=== PATIENT | male | born 1990 | race Caucasian/White ===

== ENCOUNTER → 2016-09-05 | Outpatient (CLI) | payer OTHER ==
--- NOTE | 2016-09-06 13:26 | CT ---
EXAM DATE: 09/05/16 PATIENT'S AGE: 26 Patient: DAMARIS FLAHERTY Facility: [place], [place] Site . Site : 1990 Study: CT Facial [id number]/10/2017 11:49:35 AM Ordering Physician: Jese Chaves Final Report: INDICATION: deviated nasal septum, nasal polyps CT SINUSES WITHOUT CONTRAST TECHNIQUE: Multidetector axial CT imaging was performed through the paranasal sinuses without contrast. Coronal and sagittal reconstructions were also generated. FINDINGS: There is near complete opacification of the paranasal sinuses diffusely, likely representing a combination of mucosal thickening and mucous retention cysts or polyps. Ostiomeatal complexes are occluded by mucosal thickening bilaterally. Moderate rightward deviation and bowing of the upper nasal septum is noted. There are small rounded soft tissue densities within the nasal cavity bilaterally, right greater than left, consistent with nasal polyps. There is opacification of left-sided precious bullosa. There is mild leftward angulation of the nose, likely reflecting old trauma. No acute fractures are evident. The orbits and their contents are unremarkable. Temporomandibular joints and included mandible are within normal limits. Mastoid air cells are normally aerated. IMPRESSION: Near-complete opacification of the paranasal sinuses and multiple bilateral nasal polyps as detailed above. These findings are consistent with sinonasal polyposis. LENA AL MD [employer] Dictated by Isaac Al MD @ 09/05/2016 9:01:59 PM Dictated by: Isaac Al MD @ 09/05/2016 21:02:44 (Electronic Signature) Report Signed by Proxy and Original Signed Document filed in the Medical Record. [facility]
== END ==
LOC: MW.DI 09:11
PROVIDERS: ATTEND Otolaryngology
DX: J34.2 Deviated nasal septum (principal); J33.9 Nasal polyp, unspecified; J34.89 Other specified disorders of nose and nasal sinuses
CPT/HCPCS: 70486; 70486-26

== ENCOUNTER 2016-09-21 06:16 | Day surgery (SDC) | payer OTHER ==
--- NOTE | 2016-09-21 06:44 | PCM.PREANE ---
Preanesthetic Assessment - Anesthesia/Transfusion/Family Hx Anesthesia History: Prior Anesthesia Without Reaction Family History of Anesthesia Reaction: No Transfusion History: No Prior Transfusion(s) Intubation History: Unknown - Review of Systems General: No Symptoms Pulmonary: No Symptoms Cardiovascular: No Symptoms Gastrointestinal: No symptoms Neurological: No Symptoms Other: Reports: None - Physical Assessment Height: 1.85 m Weight: 77.564 kg ASA Class: 2 Mental Status: Alert & Oriented x3 Airway Class: Mallampati = 2 Dentition: Reports: Normal Dentition Thyro-Mental Finger Breadths: 3 Mouth Opening Finger Breadths: 3 ROM/Head Extension: Full Lungs: Clear to auscultation, Normal respiratory effort Cardiovascular: Regular Rate, Regular Rhythm - Allergies Allergies/Adverse Reactions: Allergies Allergy/AdvReac Type Severity Reaction Status Date / Time No Known Allergies Allergy Verified 09/16/16 09:49 - Blood Blood Available: No - Anesthesia Plan Pre-Op Medication Ordered: None - Acknowledgements Anesthesia Type Planned: General Anesthesia Pt an Appropriate Candidate for the Planned Anesthesia: Yes Alternatives and Risks of Anesthesia Discussed w Pt/Guardian: Yes Pt/Guardian Understands and Agrees with Anesthesia Plan: Yes PreAnesthesia Questionnaire HEENT History: Reports: Other (see below) Other HEENT History: diviated septum, nasal polyp Musculoskeletal History: Reports: Back pain, chronic Other Musculoskeletal History: scheurmanns disease - Past Surgical History Head Surgeries/Procedures: Reports: None GI Surgical History: Reports: Hernia, inguinal (left at age of 8) Other GI Surgeries/Procedures: hx inguinal hernia repair - SUBSTANCE USE Smoking Status *Q: Current Some Day Smoker Tobacco Use Within Last Twelve Months: Cigarettes, Snuff/Dip (1 1/2 can every couple of days) Recreational Drug Use History: No - HOME MEDS Home Medications: Home Meds Amoxicillin/Potassium Clav [Augmentin 875-125 Tablet] 1 tab PO BID 09/16/16 [ History] predniSONE [Prednisone] 1 tab PO BID 09/16/16 [History] - CURRENT (IN HOUSE) MEDS Current Meds: Current Medications Lactated Ringer's (Ringers, Lactated) 1,000 mls @ 125 mls/hr IV ASDIRECTED [facility]
[2016-09-21] MEDS ORDERED: Lactated Ringers 1,000 ML IV SCH ×2 (06:45→07:15)
[2016-09-21] MEDS ORDERED: Remifentanil 1 MG Vial ONE (07:26)
[2016-09-21] MEDS ORDERED: Lidocaine 2% 5 ML SDV ONE ×2 (07:31→11:50)
[2016-09-21] MEDS ORDERED: EPINEPHrine 1:1000 1 MG/ML SDV ONE (07:31)
[2016-09-21] MEDS ORDERED: Aloe Vera/Sodium Chloride Gel 14.1 GM Tube ONE (07:31)
[2016-09-21] MEDS ORDERED: Oxymetazoline 0.05% Nasal Spray 15 ML Bottle ONE (07:32)
[2016-09-21] MEDS ORDERED: Lidocaine 2% with EPINEPHrine 1:100,000 20 ML MDV ONE (07:32)
[2016-09-21] MEDS ORDERED: Thrombin (Bovine) 5,000 Unit Kit ONE (07:32)
[2016-09-21] MEDS ORDERED: Propofol 200 MG/20 ML SDV ONE ×7 (07:36→12:08)
[2016-09-21] MEDS ORDERED: Lidocaine 1% 20 ML MDV ONE (07:38)
[2016-09-21] MEDS ORDERED: fentaNYL 250 MCG/5 ML SDV ONE (07:45)
[2016-09-21] MEDS ORDERED: Midazolam 1 MG/ML 2 ML SDV ONE (07:46)
--- NOTE | 2016-09-21 07:58 | PCM.HPR ---
H & P Addendum review - H & P Addendum Review Date of Original H & P: 09/05/16 Date Reviewed: 09/21/16 Time Reviewed: 07:50 Patient was examined: No Changes
[2016-09-21] MEDS ORDERED: ceFAZolin 1 GM Vial ONE (08:48)
[2016-09-21] MEDS ORDERED: Mineral Oil/Petrolatum Ophth Oint 3.5 GM Tube ONE (08:48)
[2016-09-21] MEDS ORDERED: HYDROmorphone 2 MG/ML Syringe ONE (09:34)
[2016-09-21] MEDS ORDERED: Ondansetron 4 MG/2 ML SDV ONE (11:50)
[2016-09-21] MEDS ORDERED: Dexamethasone 4 MG/ML 5 ML MDV ONE (12:02)
[2016-09-21] MEDS ORDERED: Acetaminophen/HYDROcodone 325-5 MG Tab PO PRN (13:39)
--- NOTE | 2016-09-21 13:49 | PCM.OPNOTE ---
- General Post-Op/Procedure Note Date of Surgery/Procedure: 09/21/16 Condition: Good Free Text/Narrative:: Pre operative diagnosis: Bilateral nasal polyps ( grade 3), Bilateral maxillary , ethmoid, sphenoid and frontal sinusitis with polyposis; Deviated nasal septum Post operative diagnosis: Same Procedure: Nasal Septoplasty [CPT 89294], Endoscopic nasal polypectomy, Bilateral middle meatal antrostoy with removal of polypoid tissue [ CPT 43971 ( 50)], Bilateral anterior and posterior ethmoidectomies [ CPT 61451 (50)], Bilateral sphenoidotomies [ [id number] (50). Sinus Navigation [13267] Surgeon: Andie Sawant MD Anesthesia: GA Anesthesiologist: Dr Salazar Date of procedure: 09/21/16 Indications: Findings: Bilateral Gr 3 nasal polyps - middle meatus and spheno ethmoid; bila maxillary, ethmoidal and sphenoidal polyps ++; Right - medialized uncinate; L small bulla and precious bullosa +; L caudal dislocation of septum; L posterior chondro vomerine spur +; R DNS ++high Operation Details: An informed consent was obtained. A time out was performed and the patient was brought back to the operating room. Gen. anesthesia was administered with an endotracheal tube. Oxymetazoline 0.05% was instilled in bilateral nasal cavities. The patient was then prepped and draped in a standard fashion. Bilateral eyes were left exposed and lubricating ointment was inserted into the eyes. Nasal septum was infiltrated with 2% lidocaine 1: 100, 000 epinephrine in a standard fashion-a total of 4 mils was used. A left sided elisabeth-transfixation incision was performed. A left sided mucoperichondrial flap was elevated- dissection was commenced with 2 mm osteotome and further carried out with combination of letha and [place] elevators. Posteriorly the flap was continued as a muco periosteal flap and Sharp and careful dissection was performed to lift the flaps off the left sided spur . Similar flaps were lifted on the Right side. Inferiorly flaps were lifted off the floor / maxillary crest. A posterior chondrotomy was performed. Floor of the septal cartilage was dissected off the maxillary crest. A thin vertical strip of cartilage was removed adjacent to the ethmoid. A garza scissor was used and the perpendicular plate of the ethmoid was removed. The vomer along with left-sided spur was also removed. The thin inferior strip of cartilage was removed using a septal knife. Subsequent to this the nasal septum was positioned towards the midline. There was a very small tear on the right side posteriorly and a small tear along the floor on the left side (no overlapping). The caudal septal cartilage was sutured to the nasal spine with a 5.0 PDS. The caudal end of cartilage was re positioned in a columellar pocket and flap incision was sutured with 4-0 plain gut. The [employer] navigation system was set up and the Tracker was fixed to the fore head as per protocol and tracking was performed and successful registration was obtained. The left middle turbinate axilla, the head of middle turbinate and the polyps were infiltrated with 2% lidocaine and 1 in 100,000 epinephrine-a total of 1.5 ml was used. Similar injections were performed on the right side. A cottonoid pledget soaked in 1: 10,000 epinephrine each was placed in the middle meatus, draping over the middle turbinate axilla and one in the region of the sphenoethmoid recess - this was done bilaterally. The left side was addressed first. After appropriate period of decongestion the cottonoid pledgets were removed. Nasal polyp was grasped with a Blakesly daina and gently removed and sent for histopathology. The middle turbinate was gently medialized with freer elevator and the 0 rigid nasal endoscope was introduced into the middle meatus. The posterior free edge of the uncinate process was identified and medialized with a ball probe. A right sided pediatric backbiter was used to remove the uncinate process at the junction of the horizontal and vertical part. A 4 mm straight shot tri-cut blade with navigation attached to it was then used to debride the vertical attachment of the uncinate process up to the attachment of Agger nasi cell. The middle meatus polyps were also removed. A ball probe was then used to identify the left maxillary sinus ostium - very narrow. The horizontal part of the uncinate process was then further dissected away with a ball probe and then with a combination of microdebrider and cold steel dissection. The 30 rigid endoscope was used to examine the maxillary ostium - findings as above. The sinus polyp was removed with a Huge wieser forceps. The maxillary sinus was thoroughly irrigated with saline. A 0 degree nasal endoscope was used and the left bulla ethmoidalis was identified and removed with the microdebrider along with the polypoid tissue; remaining anterior ethmoid cells were also removed. The posterior ethmoids were entered by penetrating the ground lamella at the junction of horizontal and vertical part with a microdebrider; further dissection was carried out with a microdebrider and the posterior ethmoid cells were cleared sequentially along with the polypoid tissue. Sphenoidotomy was performed inferior medially - polyp removed and sphenoid sinus was clear; the opening was enlarged inf medially. The frontal recess was examined - clear. The left middle meatus was then finally irrigated with the warm saline and inspected with rigid endoscope. No loose bone chips were identified. Attention was then directed towards the right side. The cottonoid pledgets were removed. Nasal polyp was grasped with a Blakesly wild and gently removed and sent for histopathology. The middle turbinate was gently medialized with freer elevator and the 0 rigid nasal endoscope was introduced into the middle meatus. A medialized uncinte rocess was identified. A microdebrider was used to remove the uncinate process - vertical aspect up to the attachment of Agger nasi cell. The middle meatus polyps were also removed. A ball probe was then used to identified the right maxillary sinus ostium . The horizontal part of the uncinate process was then further dissected away with a ball probe and then with a combination of microdebrider and cold steel dissection. The 30 rigid endoscope was used to examine the maxillary ostium - findings as above. The sinus polyp was removed with a microdebrider and blakesly daina. The maxillary sinus was thoroughly irrigated with saline. A 0 degree nasal endoscope was used and the bulla ethmoidalis was identified and removed with the microdebrider along with the polypoid tissue; remaining anterior ethmoid cells were also sequentially cleared. The posterior ethmoids were entered by penetrating the ground lamella at the junction of horizontal and vertical part with a microdebrider; further dissection was carried out with a microdebrider and the posterior ethmoid cells were cleared sequentially along with the polypoid tissue. Sphenoidotomy was performed inferior medially - polyp removed and sphenoid sinus was clear; the opening was enlarged inf medially. The frontal recess was examined - minimal poypoid mucos + was removed. The middle meatus was then finally irrigated with the warm saline and inspected with rigid endoscope. No loose bone chips were identified. At all times the position of instruments was confirmed with [employer] navigation and a combination of straight, 90 and 70 degrees suctions and ostium seekers - all navigated were used as required at appropriate times to assist with identifying landmarks and dissection. Nasopore packs were inserted in MM bilaterally and moistened with dexamethasone Post nasal space was suctioned clear of blood bilaterally and per orally. Drip pad was applied. This concluded the procedure and the patient was turned over to the anesthesiologist for recovery. Specimens: Bilateral nasal polyps; bon from medial wall of R maxillary sinus IV fluids: 2200 ml Blood loss: 20 ml Blood products: nil Disposition: PACU for recovery Follow up: In 1 week
[2016-09-21] MEDS ORDERED: Meperidine PF 50 MG/ML Syringe ONE (14:23)
[2016-09-21] MEDS ORDERED: Meperidine PF 25 MG/ML Syringe IVPUSH ONE (14:25)
--- NOTE | 2016-09-21 14:28 | PCM.POSTAN ---
POST ANESTHESIA ASSESSMENT - MENTAL STATUS Mental Status: alert (w/ stimulation), oriented - RESPIRATORY Respiratory Status: respiratory rate WNL, airway patent, O2 saturation stable - CARDIOVASCULAR CV Status: pulse rate WNL, blood pressure stable - GASTROINTESTINAL GI Status: no symptoms - PAIN Pain Score: 0 (c/o thirsty) - POST OP HYDRATION Hydration Status: adequate & stable
--- NOTE | 2016-09-21 16:15 | PCM48HPAN ---
Post Anesthesia Note - EVALUATION WITHIN 48HRS OF ANESTHETIC Vital Signs in Normal Range: Yes Patient Participated in Evaluation: Yes Respiratory Function Stable: Yes Airway Patent: Yes Cardiovascular Function Stable: Yes Hydration Status Stable: Yes Pain Control Satisfactory: Yes Nausea and Vomiting Control Satisfactory: Yes Mental Status Recovered: Yes - COMMENTS/OBSERVATIONS Free Text/Narrative:: Pt still somewhat groggy, but states he's ready to go home. Dr. Sawant was just by to see pt and order IV tylenol prior to discharge. VSS. Pt denies any nausea at this time. No apparent anesthesia complications.
[2016-09-21] MEDS ORDERED: Acetaminophen 1,000 MG in Premix Bag 1 BAG IV ONE (16:25)
[2016-09-21] MEDS ORDERED: Ketorolac 15 MG/ML SDV IVPUSH ONE (18:00)
[2016-09-21 18:14] VITALS: BP 115/68
== END 2016-09-21 17:35 | disposition home or self-care (01) ==
LOC: MW.SDS 06:16 → MW.MS 17:09 → MW.SDS 17:35
PROVIDERS: ATTEND Otolaryngology
DX: J33.8 Other polyp of sinus (principal); J34.2 Deviated nasal septum; J32.8 Other chronic sinusitis; F17.200 Nicotine dependence, unspecified, uncomplicated
CPT/HCPCS: 30520; 31255; 31267; 31287; 61782; A9270; J0171; J0690; J1100; J1170; J1885; J2175; J2250; J2405; J3010; J7120; 00160; 88304; J2704

== ENCOUNTER 2016-12-29 12:19 | Emergency (ER) | payer OTHER ==
--- NOTE | 2016-12-29 12:40 | EDM.PDOC ---
ED HPI GENERAL MEDICAL PROBLEM - General Chief Complaint: Respiratory Problem Stated Complaint: COUGH Time Seen by Provider: 12/29/16 12:38 Source of Information: Reports: Patient History Limitations: Reports: No Limitations - History of Present Illness INITIAL COMMENTS - FREE TEXT/NARRATIVE: History of present illness: Patient indicates he has a sore throat unable to speak well and that the ear feels like there is swelling in his throat making it hard for him to breathe visit he is breathing through a straw. Patient also indicates he's had some earache and a productive cough of a green-yellow sputum for the last 2 days. Review of systems: As per history of present illness and below otherwise all systems reviewed and negative. Past medical history: As per history of present illness and as reviewed below otherwise noncontributory. Surgical history: As per history of present illness and as reviewed below otherwise noncontributory. Social history: No reported history of drug or alcohol abuse. Family history: As per history of present illness and as reviewed below otherwise noncontributory. Physical exam: HEENT: Atraumatic, normocephalic, tenderness over frontal and maxillary facial sinuses, pupils reactive, negative for conjunctival pallor or scleral icterus, mucous membranes moist with oral pharyngeal erythema with white patchy exudate, bilateral TMs pink with good light reflex but small amount of bulging noted, neck supple, nontender, trachea midline. Lungs: Clear to auscultation, breath sounds equal bilaterally, chest nontender. Heart: S1S2, regular, negative for clicks, rubs, or JVD. Abdomen: Soft, nondistended, nontender. Negative for masses or hepatosplenomegaly. Negative for costovertebral tenderness. Pelvis: Stable nontender. Genitourinary: Deferred. Rectal: Deferred. Extremities: Atraumatic, negative for cords or calf pain. Neurovascular unremarkable. Neuro: Awake, alert, oriented. Cranial nerves II through XII unremarkable. Cerebellum unremarkable. Motor and sensory unremarkable throughout. Exam nonfocal. Diagnostics: [] Therapeutics: [] Impression: [Pharyngitis, sinusitis] Plan: [Antibiotics, inhaler, bursa steroids] Definitive disposition and diagnosis as appropriate pending reevaluation and review of above. - Related Data Allergies Allergy/AdvReac Type Severity Reaction Status Date / Time No Known Allergies Allergy Verified 09/16/16 09:49 Home Meds: Home Meds Albuterol Sulfate [Proair Hfa] 2 puff IH Q6HR #1 [email or web address] 12/29/16 [Rx] Inhaler, Assist Devices [Space Chamber Plus] 1 each ASDIRECTED #1 spacer 08/12 [Rx] Past Medical History HEENT History: Reports: Other (See Below) Other HEENT History: diviated septum, nasal polyp Musculoskeletal History: Reports: Back Pain, Chronic Other Musculoskeletal History: scheurmanns disease - Past Surgical History GI Surgical History: Reports: Hernia, Inguinal Social & Family History - Tobacco Use Smoking Status *Q: Current Some Day Smoker - Caffeine Use Caffeine Use: Reports: Coffee - Recreational Drug Use Recreational Drug Use: No ED ROS GENERAL - Review of Systems Review Of Systems: See Below (See history of present illness) ED EXAM, GENERAL - Physical Exam Exam: See Below (See history of present illness) Departure - Departure Time of Disposition: 12:40 Disposition: Home, Self-Care 01 Condition: Good Clinical Impression: Sinusitis, Pharyngitis - Discharge Information Prescriptions: Albuterol Sulfate [Proair Hfa] 2 puff IH Q6HR #1 hfa.aer.ad Amoxicillin/Potassium Clav [Augmentin 875-125 Tablet] 1 each PO BID #20 tablet Inhaler, Assist Devices [Space Chamber Plus] 1 each ASDIRECTED #1 spacer methylPREDNISolone [Medrol] 4 mg PO DAILY #21 tab.ds.pk Forms: ED Department Discharge Additional Instructions: The following information is given to patients seen in the emergency department who are being discharged to home. This information is to outline your options for follow-up care. We provide all patients seen in our emergency department with a follow-up referral. The need for follow-up, as well as the timing and circumstances, are variable depending upon the specifics of your emergency department visit. If you don't have a primary care physician on staff, we will provide you with a referral. We always advise you to contact your personal physician following an emergency department visit to inform them of the circumstance of the visit and for follow-up with them and/or the need for any referrals to a consulting specialist. The emergency department will also refer you to a specialist when appropriate. This referral assures that you have the opportunity for follow-up care with a specialist. All of these measure are taken in an effort to provide you with optimal care, which includes your follow-up. Under all circumstances we always encourage you to contact your private physician who remains a resource for coordinating your care. When calling for follow-up care, please make the office aware that this follow-up is from your recent emergency room visit. If for any reason you are refused follow-up, please contact the [facility] Emergency Department at and asked to speak to the emergency department charge nurse. Take medication as directed Follow up with PCP 1-2 days Return to ED as needed as discussed
[2016-12-29 13:13] VITALS: BP 135/61
== END 2016-12-29 12:52 | disposition home or self-care (01) ==
LOC: MW.ED 12:19
DX: J32.9 Chronic sinusitis, unspecified (principal); J02.9 Acute pharyngitis, unspecified; F17.210 Nicotine dependence, cigarettes, uncomplicated; Z98.890 Other specified postprocedural states
CPT/HCPCS: 99283

== ENCOUNTER 2017-08-04 10:51 | Emergency (ER) | payer OTHER ==
[2017-08-04] MEDS ORDERED: Ketorolac 60 MG/2 ML SDV IM ONE (11:02)
--- NOTE | 2017-08-04 11:14 | EDM.PDOC ---
ED HPI GENERAL MEDICAL PROBLEM - General Chief Complaint: Chest Pain Stated Complaint: CHEST PAIN Time Seen by Provider: 08/04/17 10:53 Source of Information: Reports: Patient History Limitations: Reports: No Limitations - History of Present Illness INITIAL COMMENTS - FREE TEXT/NARRATIVE: History of present illness: []1 hour ago patient developed substernal chest pain that feels like a "pulling ". He states it's worse when he takes a deep breath and he exhibits a sledgehammer work and that makes it worse. He does not have the pain when he sitting or lying quietly. Patient denies any fevers, cough, recent flulike symptoms or cold shortness of breath, sweatiness, dizziness or lightheadedness. Review of systems: As per history of present illness and below otherwise all systems reviewed and negative. Past medical history: As per history of present illness and as reviewed below otherwise noncontributory. Surgical history: As per history of present illness and as reviewed below otherwise noncontributory. Social history: No reported history of drug or alcohol abuse. Family history: As per history of present illness and as reviewed below otherwise noncontributory. Physical exam: General: Well developed, well nourished in NAD HEENT: Atraumatic, normocephalic, pupils reactive, negative for conjunctival pallor or scleral icterus, mucous membranes moist, throat clear, neck supple, nontender, trachea midline. Lungs: Clear to auscultation, breath sounds equal bilaterally, chest tenderness with reproducible pain on palpation and movement of his arms. Heart: S1S2, regular, negative for clicks, rubs, or JVD. Abdomen: Soft, nondistended, nontender. Negative for masses or hepatosplenomegaly. Negative for costovertebral tenderness. Pelvis: Stable nontender. Genitourinary: Deferred. Rectal: Deferred. Extremities: Atraumatic, negative for cords or calf pain. Neurovascular unremarkable. Neuro: Awake, alert, oriented. Cranial nerves II through XII unremarkable. Cerebellum unremarkable. Motor and sensory unremarkable throughout. Exam nonfocal. Diagnostics: []Chest x-ray possible trace left hilar infiltrate Therapeutics: []Toradol Impression: []Chest wall pain Plan: []Ibuprofen and Tylenol for pain follow-up with primary care Definitive disposition and diagnosis as appropriate pending reevaluation and review of above. Middle Mid-Sternal Chest Pain Score (Numeric/FACES): 6 - Related Data Allergies Allergy/AdvReac Type Severity Reaction Status Date / Time No Known Allergies Allergy Verified 08/04/17 11:02 Home Meds: Home Meds Albuterol Sulfate [Proair Hfa] 2 puff IH Q6HR #1 hfa.aer.ad 12/29/16 [Rx] Inhaler, Assist Devices [Space Chamber Plus] 1 each ASDIRECTED #1 spacer 08/12 [Rx] Past Medical History HEENT History: Reports: Other (See Below) Other HEENT History: diviated septum, nasal polyp Musculoskeletal History: Reports: Back Pain, Chronic Other Musculoskeletal History: scheurmanns disease Dermatologic History: Reports: Other (See Below) Other Dermatologic History: tinea versacolor - Infectious Disease History Infectious Disease History: Reports: None - Past Surgical History Head Surgeries/Procedures: Reports: None GI Surgical History: Reports: Hernia, Inguinal Social & Family History - Family History Family Medical History: Noncontributory - Tobacco Use Smoking Status *Q: Light Tobacco Smoker Years of Tobacco use: 9 Packs/Tins Daily: 0 - Caffeine Use Caffeine Use: Reports: Coffee - Recreational Drug Use Recreational Drug Use: No ED ROS GENERAL - Review of Systems Review Of Systems: See Below (See history of present illness) ED EXAM, GENERAL - Physical Exam Exam: See Below (See history of present illness) Course - Vital Signs Last Recorded V/S: Last Vital Signs Temp 97.5 F 08/04/17 10:58 Pulse 67 08/04/17 10:58 Resp 18 08/04/17 10:58 BP 124/58 L 08/04/17 10:58 Pulse Ox 99 08/04/17 10:58 - Orders/Labs/Meds Orders: Active Orders 24 hr Category Date Time Status EKG Documentation Completion [RC] STAT Care 08/04/17 11:01 Active Meds: Medications Discontinued Medications Generic Name Dose Route Start Last Admin Trade Name Freq PRN Reason Stop Dose Admin Ketorolac Tromethamine 60 mg 08/04/17 11:02 08/04/17 12:04 Toradol IM 08/04/17 11:03 60 mg ONETIME ONE Administration Departure - Departure Time of Disposition: 12:15 Disposition: Home, Self-Care 01 Condition: Good Clinical Impression: Chest wall pain Forms: ED Department Discharge Additional Instructions: The following information is given to patients seen in the emergency department who are being discharged to home. This information is to outline your options for follow-up care. We provide all patients seen in our emergency department with a follow-up referral. The need for follow-up, as well as the timing and circumstances, are variable depending upon the specifics of your emergency department visit. If you don't have a primary care physician on staff, we will provide you with a referral. We always advise you to contact your personal physician following an emergency department visit to inform them of the circumstance of the visit and for follow-up with them and/or the need for any referrals to a consulting specialist. The emergency department will also refer you to a specialist when appropriate. This referral assures that you have the opportunity for follow-up care with a specialist. All of these measure are taken in an effort to provide you with optimal care, which includes your follow-up. Under all circumstances we always encourage you to contact your private physician who remains a resource for coordinating your care. When calling for follow-up care, please make the office aware that this follow-up is from your recent emergency room visit. If for any reason you are refused follow-up, please contact the [facility] Emergency Department at and asked to speak to the emergency department charge nurse. Tylenol or Motrin for pain follow-up with primary care return if symptoms worsen [facility] [address] [place] [id number] - My Orders Last 24 Hours: My Active Orders 08/04/17 11:01 EKG Documentation Completion [RC] STAT - Assessment/Plan Last 24 Hours: My Active Orders 08/04/17 11:01 EKG Documentation Completion [RC] STAT
--- NOTE | 2017-08-04 11:48 | CR ---
EXAMINATION: Two-view chest (PA and Lateral views). HISTORY: Shortness of breath. FINDINGS: The trachea is midline. The cardiomediastinal silhouette is within normal limits. Trace left perihila r infiltrate is not excluded. No pleural effusion or pneumothorax. Mild left apical scarring. Levocurvature of the upper thoracic spine is noted. IMPRESSION: Possible trace left perihilar infiltrate.
[2017-08-04 12:35] VITALS: BP 120/74
== END 2017-08-04 12:28 | disposition home or self-care (01) ==
LOC: MW.ED 10:51
DX: R07.89 Other chest pain (principal); F17.210 Nicotine dependence, cigarettes, uncomplicated
CPT/HCPCS: 71046; 96372; 99284; J1885; 99283

== ENCOUNTER 2018-01-26 07:45 | Day surgery (SDC) | payer OTHER ==
[~2018-01-26 07:45] MED LIST: Bupivacaine 0.5% 10 ML SDV ONE; Lactated Ringers 1,000 ML IV SCH; ceFAZolin 1 GM Vial ONE
[2018-01-26] MEDS ORDERED: Rocuronium 10 MG/ML 10 ML Syringe ONE (09:03)
[2018-01-26] MEDS ORDERED: Ondansetron 4 MG/2 ML SDV ONE (09:03)
[2018-01-26] MEDS ORDERED: fentaNYL 100 MCG/2 ML SDV ONE (09:03)
[2018-01-26] MEDS ORDERED: Midazolam 1 MG/ML 2 ML SDV ONE (09:03)
[2018-01-26] MEDS ORDERED: Propofol 200 MG/20 ML SDV ONE ×2 (09:03→09:29)
[2018-01-26] MEDS ORDERED: Dexamethasone 4 MG/ML 5 ML MDV ONE (09:04)
[2018-01-26] MEDS ORDERED: Ketorolac 30 MG/ML SDV ONE (09:04)
--- NOTE | 2018-01-26 09:09 | PCM.PREANE ---
Preanesthetic Assessment - Anesthesia/Transfusion/Family Hx Anesthesia History: Prior Anesthesia Reaction Other Type of Anesthesia Reaction Comment: hx of low SaO2 post op and violent behavior when awakening Family History of Anesthesia Reaction: No Transfusion History: No Prior Transfusion(s) Intubation History: Unknown - Review of Systems General: Other (groin discomfort) Pulmonary: No Symptoms Cardiovascular: No Symptoms Gastrointestinal: Abdominal Pain (due to hernioa) Neurological: No Symptoms Other: Reports: None - Physical Assessment NPO Status Date: 01/25/18 NPO Status Time: 20:00 O2 Sat by Pulse Oximetry: 98 Respiratory Rate: 16 Vital Signs: Last Vital Signs Temp 98.2 F 01/26/18 08:05 Pulse 68 01/26/18 08:05 Resp 16 01/26/18 08:05 BP 130/80 01/26/18 08:05 Pulse Ox 98 01/26/18 08:05 Height: 6 ft 1 in Weight: 193 lb ASA Class: 2 Mental Status: Alert & Oriented x3 Airway Class: Mallampati = 2 Dentition: Reports: Normal Dentition Thyro-Mental Finger Breadths: 3 Mouth Opening Finger Breadths: 3 ROM/Head Extension: Full Lungs: Clear to Auscultation, Normal Respiratory Effort Cardiovascular: Regular Rate, Regular Rhythm, No Murmurs - Allergies Allergies/Adverse Reactions: Allergies Allergy/AdvReac Type Severity Reaction Status Date / Time No Known Allergies Allergy Verified 01/19/18 16:44 - Blood Blood Available: No Product(s) Available: None - Anesthesia Plan Pre-Op Medication Ordered: None - Acknowledgements Anesthesia Type Planned: General Anesthesia (OET ) Pt an Appropriate Candidate for the Planned Anesthesia: Yes Alternatives and Risks of Anesthesia Discussed w Pt/Guardian: Yes Pt/Guardian Understands and Agrees with Anesthesia Plan: Yes Additional Comments: Awareness made to all involved in the care of this patient with his violent emergence. PreAnesthesia Questionnaire HEENT History: Reports: None Other HEENT History: diviated septum, nasal polyp Cardiovascular History: Reports: None Respiratory History: Reports: None Genitourinary History: Reports: None Musculoskeletal History: Reports: Back Pain, Chronic, Fracture Other Musculoskeletal History: hx of fx ankle Neurological History: Reports: None Psychiatric History: Reports: Anxiety, Depression, PTSD Endocrine/Metabolic History: Reports: None Hematologic History: Reports: None Immunologic History: Reports: None Oncologic (Cancer) History: Reports: None Dermatologic History: Reports: None Other Dermatologic History: tinea versacolor - Infectious Disease History Infectious Disease History: Reports: None - Past Surgical History Head Surgeries/Procedures: Reports: None HEENT Surgical History: Reports: Naso-Sinus Surgery GI Surgical History: Reports: Hernia, Inguinal Other GI Surgeries/Procedures: hx inguinal hernia repair - SUBSTANCE USE Smoking Status *Q: Unknown Ever Smoked Tobacco Use Within Last Twelve Months: Cigarettes Days Per Week of Alcohol Use: 7 Number of Drinks Per Day: 6 Total Drinks Per Week: 42 Recreational Drug Use History: No - HOME MEDS Home Medications: Home Meds . [No Known Home Meds] 01/19/18 [History] - CURRENT (IN HOUSE) MEDS Current Meds: Current Medications Lactated Ringer's (Ringers, Lactated) 1,000 mls @ 125 mls/hr IV ASDIRECTED [facility] Last Admin: 01/26/18 08:25 Dose: 125 mls/hr Discontinued Medications Bupivacaine HCl (Sensorcaine-Mpf 0.5%) Confirm Administered Dose 10 ml .ROUTE .STK-MED ONE Stop: 01/26/18 07:40 Cefazolin Sodium (Ancef) Confirm Administered Dose 1 gm .ROUTE .STK-MED ONE Stop: 01/26/18 07:40
[2018-01-26] MEDS ORDERED: HYDROmorphone 2 MG/ML SDV ONE (09:29)
[2018-01-26] MEDS ORDERED: ceFAZolin 1 GM Vial ONE (09:52)
[2018-01-26] MEDS ORDERED: Sugammadex Sodium 200 MG/2 ML VIAL ONE (10:42)
[2018-01-26] MEDS ORDERED: Acetaminophen/HYDROcodone 325-5 MG Tab PO PRN (11:05)
[2018-01-26] MEDS ORDERED: Ondansetron 4 MG/2 ML SDV IVPUSH PRN (11:05)
--- NOTE | 2018-01-26 11:07 | PCM.OPNOTE ---
- General Post-Op/Procedure Note Date of Surgery/Procedure: 01/26/18 Operative Procedure(s): Repair right inguinal hernia with medium Bard PerFix plug and patch Pre Op Diagnosis: Reducible right inguinal hernia Post-Op Diagnosis: Reducible direct right inguinal hernia Anesthesia Technique: General ET Tube (ASA II) Primary Surgeon: Roderick Lyman Fluid Replacement, Intraop: 1,100 EBL in mLs: 10 Condition: Good Free Text/Narrative:: DICTATION [id number] CPT CODE 19222
[2018-01-26] MEDS ORDERED: Lactated Ringers 1,000 ML IV SCH (11:15)
[2018-01-26] MEDS: Morphine 4 MG/ML Syringe IVPUSH PRN ×2 (11:25→12:29)
--- NOTE | 2018-01-26 12:09 | PCM.POSTAN ---
POST ANESTHESIA ASSESSMENT - MENTAL STATUS Mental Status: Alert, Oriented - RESPIRATORY Respiratory Status: Respiratory Rate WNL, Airway Patent, O2 Saturation Stable - CARDIOVASCULAR CV Status: Pulse Rate WNL, Blood Pressure Stable - GASTROINTESTINAL GI Status: No Symptoms - POST OP HYDRATION Hydration Status: Adequate & Stable
--- NOTE | 2018-01-26 14:24 | PCM48HPAN ---
Post Anesthesia Note - EVALUATION WITHIN 48HRS OF ANESTHETIC Vital Signs in Normal Range: Yes Patient Participated in Evaluation: Yes Respiratory Function Stable: Yes Airway Patent: Yes Cardiovascular Function Stable: Yes Hydration Status Stable: Yes Pain Control Satisfactory: Yes Nausea and Vomiting Control Satisfactory: Yes Mental Status Recovered: Yes Resp Rate: 16
[2018-01-26 15:10] VITALS: BP 123/75
--- NOTE | 2018-01-26 17:45 | OR ---
SURGEON: Roderick Lyman M.D. DATE OF PROCEDURE: 01/26/2018 OPERATION PERFORMED: Repair of right inguinal hernia with medium Bard PerFix plug and patch. ANESTHESIA: General endotracheal. ASA CLASSIFICATION: II PREOPERATIVE DIAGNOSIS: Reducible right inguinal hernia. POSTOPERATIVE DIAGNOSIS: Reducible right inguinal hernia. ESTIMATED BLOOD LOSS: 10 mL. INTRAOPERATIVE FLUID REPLACEMENT: 1100 mL of crystalloid. DESCRIPTION OF PROCEDURE: The patient was taken to the operating room, placed on the operating table in supine position. Time-out was called for appropriate identification of patient and procedure. Thigh-high TEDs and sequential compression boots were placed. The surgical site had been marked prior to the patient entering the operating room. Following satisfactory attainment of general endotracheal anesthesia, the abdomen was prepped with DuraPrep solution. Sterile drapes were applied. The skin incision was marked out in the right inguinal crease and infiltrated with 10 mL of 0.5% Marcaine solution. The skin incision was made and deepened through the subcutaneous tissue obtaining hemostasis with a combination of electrocautery and ligating larger vessels with 3-0 Vicryl ties. Dissection was carried down to the external oblique fascia, which was opened in the direction of its fibers. The spermatic cord was identified. The defect was medial. The cord was mobilized with care taken to preserve the ilioinguinal nerve. The cord was then encircled with a [place] drain. A medium Bard PerFix plug and patch was brought to the operating table and soaked in 1% Ancef solution. The plug was placed into the medial defect and secured with 0 Ethibond sutures. The patch was placed over this and the repair carried out medially to laterally and inferiorly beginning at Cortes ligament, transitioning to the inguinal ligament and superiorly to the transversalis fascia. The wings of the patch were brought around the cord and secured laterally with an 0 Ethibond suture. All sutures, but the lateral stitch was tied. The patient was given a Valsalva maneuver to 40 cm of water and the repair was solid. The lateral suture was secured. The wound was then irrigated with 1% Ancef solution and all fluid aspirated. The cord was returned to its anatomic location. The external oblique was closed with running 3-0 Vicryl. Aneesh fascia was closed with 3-0 Vicryl, and the skin edges were re-approximated with subcuticular 4-0 Monocryl. The incision was reinforced with Steri-Strips and a sterile Tegaderm pad was placed as a dressing. Sponge, needle, and instrument counts were all correct. The patient tolerated the procedure well. Following emergence from anesthesia and extubation, the patient was taken to recovery room in stable condition. RUPERT WOODS /[id number]
== END 2018-01-26 14:04 | disposition home or self-care (01) ==
LOC: MW.SDS 07:45
PROVIDERS: ATTEND Surgery
DX: K40.90 Unilateral inguinal hernia, without obstruction or gangrene, not specified as recurrent (principal); F41.9 Anxiety disorder, unspecified; F32.9 Major depressive disorder, single episode, unspecified; F43.10 Post-traumatic stress disorder, unspecified; F17.210 Nicotine dependence, cigarettes, uncomplicated
CPT/HCPCS: 49505; A9270; J0690; J1100; J1170; J1885; J2250; J2270; J2405; J2704; J3010; J3490; J7120

== ENCOUNTER 2021-05-31 16:41 | Emergency (ER) | payer BC, OTHER ==
[2021-05-31 17:37] LABS: CORONAVIRUS COVID-19 NAA NEGATIVE (NEGATIVE); INFLUENZA A NAA NEGATIVE (NEGATIVE); INFLUENZA B NAA NEGATIVE (NEGATIVE)
[2021-05-31 18:49] LABS: BLOOD UREA NITROGEN,BUN 17 mg/dL (7.0-18.0); CHLORIDE,CL 104 mmol/L (98-107); GLUCOSE RANDOM 101 mg/dL (74-106); POTASSIUM,K 4.9 mmol/L (3.5-5.1); SODIUM,NA 140 mmol/L (136-148)
--- NOTE | 2021-05-31 19:29 | CR ---
Indication: Pain. Shortness of breath. Technique: A portable AP upright view of the chest was obtained. Comparison: 08/04/2017 Findings: The cardiac silhouette and pulmonary vasculature are within normal limits. The lungs are clear bilaterally. There is scoliosis Impression: No evidence of acute pulmonary disease. Dictated by Conner Villafana MD @ 05/31/2021 7:27:27 PM (Electronically Signed)
--- NOTE | 2021-05-31 20:01 | EDM.PDOC ---
ED HPI GENERAL MEDICAL PROBLEM - General Chief Complaint: Chest Pain Stated Complaint: TROUBLE BREATHING, RT SIDE PAIN Time Seen by Provider: 05/31/21 17:45 Source of Information: Reports: Patient History Limitations: Reports: No Limitations - History of Present Illness INITIAL COMMENTS - FREE TEXT/NARRATIVE: HISTORY AND PHYSICAL: History of present illness: Patient is an otherwise healthy 31-year-old male who presents emergency room today with concern of episodes of chest pain that have been ongoing for the past 3 days. Patient states that these episodes are intermittent and are sharp and only last a few seconds. He also states he also has an associated pressure that has been constant for 3 days. Patient states that a few hours before coming to the emergency room, he was walking when the pain had occurred and he felt like he could not take a deep breath. He states this was sharp and only lasted a few seconds before resolved. Patient states he has not taken anything for his symptoms. Patient denies fever, chills, shortness of breath, or cough. Denies headache, neck stiff ness, change in vision, syncope, or near syncope. Denies nausea, vomiting, abdominal pain, diarrhea, constipation, or dysuria. Has not noted any blood in urine or stool. Patient has been eating and drinking appropriately. Review of systems: As per history of present illness and below otherwise all systems reviewed and negative. Past medical history: As per history of present illness and as reviewed below otherwise noncontributory. Surgical history: As per history of present illness and as reviewed below otherwise noncontributory. Social history: See social history for further information Family history: As per history of present illness and as reviewed below otherwise noncontributory. Physical exam: General: Patient is alert, oriented, and in no acute distress. Patient sitting comfortably on exam table. Vitals stable and reviewed by me. HEENT: Atraumatic, normocephalic, pupils equal and reactive bilaterally, negative for conjunctival pallor or scleral icterus, mucous membranes moist, throat clear, neck supple, nontender, trachea midline. No drooling or trismus noted. No meningeal signs. No hot potato voice noted. Lungs: Clear to auscultation, breath sounds equal bilaterally, chest nontender. Heart: S1S2, regular rate and rhythm without overt murmur Abdomen: Soft, nondistended, nontender. Negative for masses or hepatosplenomegaly. Negative for costovertebral tenderness. Pelvis: Stable nontender. Genitourinary: Deferred. Rectal: Deferred. Skin: Intact, warm, dry. No lesions or rashes noted. Extremities: Atraumatic, negative for cords or calf pain. Neurovascular unremarkable. Neuro: Awake, alert, oriented. Cranial nerves II through XII unremarkable. Cerebellum unremarkable. Motor and sensory unremarkable throughout. Exam nonfocal. Medical Decision Making: Dr. Addison's dictation for specific EKG interpretation. Otherwise, NSR without STEMI. Mild derangements of labwork unremarkable. Ddimer neg, Trop neg. CXR unremarkable. Heart score low risk Return precautions thoroughly discussed with patient. Discussed importance for follow-up with a primary care provider. Voices understanding and is agreeable to plan of care. Denies any further questions or concerns at this time. Diagnostics: EKG, CBC, CMP, Ddimer, CXR, Trop Therapeutics: None Prescription: None Impression: Atypical chest pain Plan: 1. You can alternate ibuprofen and Tylenol as directed for pain and discomfort. 2. Follow-up with a primary care provider as discussed. Return to the ED as needed and as discussed. Definitive disposition and diagnosis as appropriate pending reevaluation and review of above. Chest Pain Score (Numeric/FACES): 2 - Related Data Allergies Allergy/AdvReac Type Severity Reaction Status Date / Time No Known Allergies Allergy Verified 05/31/21 16:45 Home Meds: Home Meds . [No Known Home Meds] 05/25/18 [History] Past Medical History HEENT History: Reports: None Other HEENT History: diviated septum, nasal polyp Cardiovascular History: Reports: None Respiratory History: Reports: None Genitourinary History: Reports: None Musculoskeletal History: Reports: Back Pain, Chronic, Fracture Other Musculoskeletal History: hx of fx ankle Neurological History: Reports: None Psychiatric History: Reports: Anxiety, Depression, PTSD Endocrine/Metabolic History: Reports: None Hematologic History: Reports: None Immunologic History: Reports: None Oncologic (Cancer) History: Reports: None Dermatologic History: Reports: None Other Dermatologic History: tinea versacolor - Infectious Disease History Infectious Disease History: Reports: Chicken Pox - Past Surgical History Head Surgeries/Procedures: Reports: None HEENT Surgical History: Reports: Naso-Sinus Surgery GI Surgical History: Reports: Hernia, Inguinal Other GI Surgeries/Procedures: hx inguinal hernia repair Social & Family History - Family History Family Medical History: No Pertinent Family History HEENT: Reports: None Cardiac: Reports: HI Respiratory: Reports: None GI: Reports: None : Reports: None OBGYN: Reports: None Musculoskeletal: Reports: None Neurological: Reports: CVA Endocrine/Metabolic: Reports: Diabetes, type II Hematologic: Reports: None - Caffeine Use Caffeine Use: Reports: Tea - Recreational Drug Use Recreational Drug Use: No ED ROS GENERAL - Review of Systems Review Of Systems: Comprehensive ROS is negative, except as noted in HPI. ED EXAM, GENERAL - Physical Exam Exam: See Below (see dictation) Course - Vital Signs Last Recorded V/S: Last Vital Signs Temp 98.1 F 05/31/21 16:45 Pulse 66 05/31/21 20:32 Resp 18 05/31/21 20:32 BP 122/71 05/31/21 20:32 Pulse Ox 98 05/31/21 20:32 - Orders/Labs/Meds Labs: Laboratory Tests 05/31/21 05/31/21 05/31/21 Range/Units 16:55 18:06 18:06 WBC 6.03 (4.0-11.0) K/uL RBC 4.71 (4.50-5.90) M/uL Hgb 14.2 (13.0-17.0) g/dL Hct 42.1 (38.0-50.0) % MCV 89.4 (80.0-98.0) fL MCH 30.1 (27.0-32.0) pg MCHC 33.7 (31.0-37.0) g/dL RDW Std Deviation 45.8 (28.0-62.0) fl RDW Coeff of Reese 14 (11.0-15.0) % Plt Count 270 (150-400) K/uL MPV 10.50 (7.40-12.00) fL Neut % (Auto) 50.3 (48.0-80.0) % Lymph % (Auto) 32.7 (16.0-40.0) % Graves % (Auto) 10.9 (0.0-15.0) % Eos % (Auto) 5.8 (0.0-7.0) % Baso % (Auto) 0.3 (0.0-1.5) % Neut # (Auto) 3.0 (1.4-5.7) K/uL Lymph # (Auto) 2.0 (0.6-2.4) K/uL Graves # (Auto) 0.7 (0.0-0.8) K/uL Eos # (Auto) 0.4 (0.0-0.7) K/uL Baso # (Auto) 0.0 (0.0-0.1) K/uL Nucleated RBC % 0.0 /100WBC Nucleated RBCs # 0 K/uL D-Dimer, Quantitative (0.0-0.50) mg/L FEU Sodium 140 (136-148) mmol/L Potassium 4.9 (3.5-5.1) mmol/L Chloride 104 (98-107) mmol/L Carbon Dioxide 28.0 (21.0-32.0) mmol/L BUN 17 (7.0-18.0) mg/dL Creatinine 0.9 (0.8-1.3) mg/dL Est Cr Clr Drug Dosing 138.27 mL/min Estimated GFR (MDRD) > 60.0 ml/min Glucose 101 (74-106) mg/dL Calcium 9.2 (8.5-10.1) mg/dL Total Bilirubin 0.3 (0.2-1.0) mg/dL AST 22 (15-37) IU/L ALT 37 (14-63) IU/L Alkaline Phosphatase 76 (46-116) U/L Troponin I < 0.050 (0.000-0.056) ng/mL Total Protein 7.7 (6.4-8.2) g/dL Albumin 4.1 (3.4-5.0) g/dL Globulin 3.6 (2.6-4.0) g/dL Albumin/Globulin Ratio 1.1 (0.9-1.6) Lipase (73-393) U/L Influenza Type A RNA NEGATIVE (NEGATIVE) Influenza Type B RNA NEGATIVE (NEGATIVE) SARS-CoV-2 RNA (RM) NEGATIVE (NEGATIVE) 05/31/21 05/31/21 Range/Units 18:06 18:06 WBC (4.0-11.0) K/uL RBC (4.50-5.90) M/uL Hgb (13.0-17.0) g/dL Hct (38.0-50.0) % MCV (80.0-98.0) fL MCH (27.0-32.0) pg MCHC (31.0-37.0) g/dL RDW Std Deviation (28.0-62.0) fl RDW Coeff of Reese (11.0-15.0) % Plt Count (150-400) K/uL MPV (7.40-12.00) fL Neut % (Auto) (48.0-80.0) % Lymph % (Auto) (16.0-40.0) % Graves % (Auto) (0.0-15.0) % Eos % (Auto) (0.0-7.0) % Baso % (Auto) (0.0-1.5) % Neut # (Auto) (1.4-5.7) K/uL Lymph # (Auto) (0.6-2.4) K/uL Graves # (Auto) (0.0-0.8) K/uL Eos # (Auto) (0.0-0.7) K/uL Baso # (Auto) (0.0-0.1) K/uL Nucleated RBC % /100WBC Nucleated RBCs # K/uL D-Dimer, Quantitative < 0.19 (0.0-0.50) mg/L FEU Sodium (136-148) mmol/L Potassium (3.5-5.1) mmol/L Chloride (98-107) mmol/L Carbon Dioxide (21.0-32.0) mmol/L BUN (7.0-18.0) mg/dL Creatinine (0.8-1.3) mg/dL Est Cr Clr Drug Dosing mL/min Estimated GFR (MDRD) ml/min Glucose (74-106) mg/dL Calcium (8.5-10.1) mg/dL Total Bilirubin (0.2-1.0) mg/dL AST (15-37) IU/L ALT (14-63) IU/L Alkaline Phosphatase (46-116) U/L Troponin I (0.000-0.056) ng/mL Total Protein (6.4-8.2) g/dL Albumin (3.4-5.0) g/dL Globulin (2.6-4.0) g/dL Albumin/Globulin Ratio (0.9-1.6) Lipase 246 (73-393) U/L Influenza Type A RNA (NEGATIVE) Influenza Type B RNA (NEGATIVE) SARS-CoV-2 RNA (RM) (NEGATIVE) Departure - Departure Time of Disposition: 20:00 Disposition: Home, Self-Care 01 Clinical Impression: Atypical chest pain - Discharge Information Instructions: Nonspecific Chest Pain, Adult, [id number] Referrals: PCP,None [Primary Care Provider] - Forms: ED Department Discharge Additional Instructions: The following information is given to patients seen in the emergency department who are being discharged to home. This information is to outline your options for follow-up care. We provide all patients seen in our emergency department with a follow-up referral. The need for follow-up, as well as the timing and circumstances, are variable depending upon the specifics of your emergency department visit. If you don't have a primary care physician on staff, we will provide you with a referral. We always advise you to contact your personal physician following an emergency department visit to inform them of the circumstance of the visit and for follow-up with them and/or the need for any referrals to a consulting specialist. The emergency department will also refer you to a specialist when appropriate. This referral assures that you have the opportunity for follow-up care with a specialist. All of these measure are taken in an effort to provide you with optimal care, which includes your follow-up. Under all circumstances we always encourage you to contact your private physician who remains a resource for coordinating your care. When calling for follow-up care, please make the office aware that this follow-up is from your recent emergency room visit. If for any reason you are refused follow-up, please contact the [facility] Emergency [facility] at and asked to speak to the emergency department charge nurse. [facility] [address] [place] [id number] [facility] [address] [place] [address] 1. You can alternate ibuprofen and Tylenol as directed for pain and discomfort. 2. Follow-up with a primary care provider as discussed. Return to the ED as needed and as discussed. Sepsis Event Note (ED) - Evaluation Sepsis Screening Result: No Definite Risk - Focused Exam Vital Signs: Vital Signs Temp Pulse Resp BP Pulse Ox 05/31/21 20:32 66 18 122/71 98 05/31/21 16:45 98.1 F 80 18 142/84 H 98
[2021-05-31 20:32] VITALS: BP 122/71; PULSE 66
--- NOTE | 2021-06-01 08:10 | PCM.EKG ---
#1 Interpretation EKG Date: 05/31/21 Time: 16:41 Rhythm: NSR Rate (Beats/Min): 77 [place]: Normal P-Wave: Present QRS: Normal ST-T: Normal QT: Normal Comparison: No Change (08/14/17) EKG Interpretation Comments: Sinus Rhythm
== END 2021-05-31 20:32 | disposition home or self-care (01) ==
LOC: MW.ED 16:41
DX: R07.89 Other chest pain (principal); Z20.822 Contact with and (suspected) exposure to COVID-19
CPT/HCPCS: 0240U; 36415; 71045; 80053; 83690; 84484; 85025; 85379; 93005; 99285

== ENCOUNTER 2022-08-21 18:31 | Emergency (ER) | payer OTHER ==
[2022-08-21] MEDS ORDERED: Sodium Chloride 0.9% 2.5 ML Syringe FLUSH PRN (18:56)
[2022-08-21] MEDS ORDERED: Sodium Chloride 0.9% 10 ML Syringe FLUSH PRN (18:56)
[2022-08-21 19:15] LABS: CARBON DIOXIDE,CO2 28.7 mmol/L (21.0-32.0)
[2022-08-21] MEDS ORDERED: Iopamidol 755 MG/ML 500 ML Multipack Bottle IVPUSH ONE (19:32)
[2022-08-21] MEDS ORDERED: Ketorolac 30 MG/ML SDV IVPUSH STA (20:37)
[2022-08-21] MEDS ORDERED: diphenhydrAMINE 50 MG/ML SDV IVPUSH STA (20:37)
[2022-08-21] MEDS ORDERED: Promethazine 25 MG/ML SDV IM STA (20:37)
[2022-08-21] MEDS ORDERED: Dexamethasone 10 MG/ML SDV IVPUSH STA (21:33)
[2022-08-21] MEDS ORDERED: Piperacillin/Tazobactam 3.375 GM in Sodium Chloride 0.9% 50 ML IV STA (21:33)
[2022-08-21] MEDS ORDERED: Sodium Chloride 0.9% 50 ML ONE (21:50)
[2022-08-21 23:06] VITALS: BP 130/89; PULSE 78
== END 2022-08-21 23:09 | disposition home or self-care (01) ==
LOC: MW.ED 18:31
DX: H53.2 Diplopia (principal); H04.432 Chronic lacrimal mucocele of left lacrimal passage; H05.20 Unspecified exophthalmos
CPT/HCPCS: 36415; 70460; 70481; 80053; 84443; 85025; 96365; 96372; 96375; 99284; J1100; J1200; J1885; J2543; J2550; J3490; J7050; Q9967; 99285